=== PATIENT | female | born 1990 ===

== ENCOUNTER → 2020-08-31 13:50 | Outpatient (CLI) | payer OTHER, SELFPAY ==
--- NOTE | ~2020-08-31 | US_ITS ---
EXAMINATION: US pelvic complete w TV DATE: 08/31/2020 14:20 INDICATION: Pelvic pain. Comparison:No prior studies for comparison. TECHNIQUE: Multiple transabdominal and endovaginal sonographic images of the pelvis performed. FINDINGS: The uterus measures 10.3 x 5.3 x 7.1 cm. The endometrial complex measures 1.5 cm. The right ovary measures 2.5 x 1.8 x 3.1 cm and the left ovary measures 3.4 x 4 x 2.3 cm. There is a 2 cm left ovarian cyst. There are small follicles in each ovary. Normal doppler signal in both ovarie s. There is no free fluid in the pelvis. There are no abnormal masses seen on either side. IMPRESSION: 1. 2 cm left ovarian cyst. 2: Endometrial thickening measuring 1.5 cm. Reviewed, dictated and finalized at location B.
== END ==
PROVIDERS: Visit Provider Nurse Practitioner Family
DX: R10.2 Pelvic and perineal pain (principal); N83.202 Unspecified ovarian cyst, left side
CPT/HCPCS: 76830; 76856

== ENCOUNTER → 2022-04-27 15:39 | Outpatient (CLI) | payer BC, SELFPAY ==
--- NOTE | ~2022-04-27 | US_ITS ---
EXAMINATION: US pelvic complete w TV DATE: 04/27/2022 16:09 INDICATION: Pelvic pain Comparison:08/31/2020 TECHNIQUE: Multiple transabdominal and endovaginal sonographic images of the pelvis performed. FINDINGS: The uterus measures 9.5 x 4.7 x 7.2 cm. The endometrial complex measures 1.7 cm. The right ovary measures 3 x 1.9 x 2.7 cm and the left ovary measures 2.8 x 2.7 x 2.9 cm. There is a 2 cm left ovarian cyst. There are small follicles in each ovary. Normal doppler signal in both ovarie s. There is no free fluid in the pelvis. There are no abnormal masses seen on either side. IMPRESSION: 1. Left ovarian cyst measuring 2 cm. 2: Endometrial thickening measuring 1.7 cm Reviewed, dictated and finalized at location B. O [employer]
== END ==
PROVIDERS: PCP Physician Assistant; Visit Provider Nurse Practitioner Family
DX: N83.202 Unspecified ovarian cyst, left side (principal)
CPT/HCPCS: 76830; 76856